=== PATIENT | female | born 1975 | race Caucasian/White ===

== ENCOUNTER → 2017-06-08 | Outpatient (CLI) | payer BC ==
--- NOTE | 2017-06-08 19:17 | Diagnostic Imaging Report ---
INDICATION: Digital mammogram bilateral screening. This study was compared to the prior exam of 06/10/15. At this time, there are no current complaints. The current study was also evaluated with a Computer Aided Detection (CAD) system. FINDINGS: The fibroglandular tissue in both breasts is heterogeneously dense. This does limit the sensitivity of this exam. Overall, there does not appear to have been any significant change when compared to the prior study. No primary or secondary sign of malignancy is noted. IMPRESSION: There is no radiographic evidence for malignancy. ACR BI-RADS Category 1: Negative. Result letter will be mailed to the patient. Note: At least 10% of breast cancer is not imaged by mammography. Dictated by: Dictated on workstation # [id number]
== END ==
LOC: RAD 07:48
PROVIDERS: ATTEND Nurse Practitioner Family
DX: Z12.31 Encounter for screening mammogram for malignant neoplasm of breast (principal)
CPT/HCPCS: 77067

== ENCOUNTER → 2018-07-25 | Outpatient (CLI) | payer BC ==
--- NOTE | 2018-07-25 12:00 | Diagnostic Imaging Report ---
INDICATION: Screening. TECHNIQUE: Bilateral CC and MLO 3D mammography was performed. The current study was also evaluated with a Computer Aided Detection (CAD) system. COMPARISON: 06/08/2017 and 06/10/2015. FINDINGS: The fibroglandular tissue is heterogeneously dense bilaterally. There is no dominant mass, spiculated lesion, or suspicious calcification identified. The skin, nipples, and axillae are unremarkable. IMPRESSION: Negative. ACR BI-RADS Category 1: Negative. Result letter will be mailed to the patient. Note: At least 10% of breast cancer is not imaged by mammography. Dictated by: Dictated on workstation # [id number]
== END ==
LOC: RAD 07:45
PROVIDERS: ATTEND Family Medicine
DX: Z12.31 Encounter for screening mammogram for malignant neoplasm of breast (principal)
CPT/HCPCS: 77067

== ENCOUNTER → 2019-08-29 | Outpatient (CLI) | payer BC ==
--- NOTE | 2019-08-29 19:41 | Diagnostic Imaging Report ---
Digital mammogram bilateral screening The current study was also evaluated with a Computer Aided Detection (CAD) system. The study was compared to the prior exams of 07/25/2018, 06/08/2017 and 06/10/2015. At this time, there are no current complaints. The fibroglandular tissue in both breasts is heterogeneously dense. This does limit the sensitivity of this exam. On the craniocaudad view of the left breast in the far lateral aspect of the breast roughly 10 cm from nipple there is a 1.4 cm area of increased density. There may be a corresponding abnormality on the MLO view just superior to the nipple line. This neodensity is of uncertain etiology but does represent a change from the prior study. I would recommend that a compression view of this area be obtained in the CC and ML projections for further study. Ultrasound should also be performed. The right breast is unchanged. IMPRESSION: Additional mammographic views and ultrasound of the left breast would be recommended for further study. ACR BI-RADS Category 0 : Needs additional imaging Result letter will be mailed to the patient. Note: At least 10% of breast cancer is not imaged by mammography. Dictated by: Dictated on workstation # [id number]
== END ==
LOC: RAD 07:21
PROVIDERS: ATTEND Family Medicine
DX: Z12.31 Encounter for screening mammogram for malignant neoplasm of breast (principal)
CPT/HCPCS: 77063; 77067

== ENCOUNTER → 2019-09-04 | Outpatient (CLI) | payer BC ==
--- NOTE | 2019-09-04 14:04 | Diagnostic Imaging Report ---
INDICATION: Left breast density. Study is performed for further evaluation. COMPARISON: Correlation is made with recent screening study from 08/29/2019. TECHNIQUE: Unilateral left 2D and 3D diagnostic mammography was performed. This includes spot compression CC and ML views as well as conventional 90 degree lateral view. The current study was evaluated with a Computer Aided Detection (CAD) system. FINDINGS: There is some mild residual density in the outer left breast at posterior depth approximately 9 to 10 cm from the nipple. This most likely represents fibroglandular tissue. No underlying mass is detected. No suspicious calcifications are seen. IMPRESSION: Mild residual density in the far posterior and outer left breast at approximately the 3 o'clock position. This may represent fibroglandular tissue. Further evaluation with ultrasound is recommended and will be performed today. ACR BI-RADS Category 0: Incomplete. (Needs additional imaging evaluation). Result letter will be mailed to the patient. Note: At least 10% of breast cancer is not imaged by mammography. Dictated by: Dictated on workstation # [id number]
--- NOTE | 2019-09-04 15:00 | Diagnostic Imaging Report ---
INDICATION: Left breast density. This study is performed for further evaluation. COMPARISON: Correlation is made with the diagnostic mammogram from earlier this same day and screening mammography from 08/29/2019. FINDINGS: Sonographic interrogation of the upper outer left breast at posterior depth was performed. No concerning sonographic finding is identified. There are several small cysts in the upper outer left breast at the 12, 2, and 3 o'clock locations. All cysts are approximately 3 to 5 mm in size. No solid mass is detected. IMPRESSION: Multiple cysts are seen in the upper outer left breast. No concerning sonographic findings are seen. The patient may return to routine annual screening mammography. ACR BI-RADS Category 2: Benign findings. Result letter will be mailed to the patient. Note: At least 10% of breast cancer is not imaged by mammography. Dictated by: Dictated on workstation # [id number]
== END ==
LOC: RAD 13:10
PROVIDERS: ATTEND Family Medicine
DX: N63.20 Unspecified lump in the left breast, unspecified quadrant (principal)
CPT/HCPCS: 76642

== ENCOUNTER → 2020-03-11 | Outpatient (CLI) | payer BC ==
--- NOTE | 2020-03-11 11:45 | Diagnostic Imaging Report ---
Lumbar spine at 1105 Indication: Left hip pain The lateral view shows the vertebral body heights and alignment to be generally within normal limits and similar to the prior exam of 10/18/2012. In the interval since the prior study mild narrowing of the L1-L2 and L2-L3 disc spaces has developed. The other intervertebral spaces are fairly well-maintained. There is no fracture or acute bony abnormality evident. There is no paraspinal mass. There is mild symmetrical sclerosis of the sacroiliac joints. Impression: 1. There is no evidence for an acute bony abnormality. 2. Mild degenerative changes involving the L1-L2 and L2-3 disc space have developed since the prior study. If there is clinical concern regarding spinal stenosis or nerve root encroachment, then MRI would be recommended for further study. Dictated by: Dictated on workstation # [id number]
--- NOTE | 2020-03-11 12:02 | Diagnostic Imaging Report ---
Left tibia at 11:03. Indication: Hip pain 2 views were obtained. There is no fracture, dislocation or acute bony abnormality evident. There is only mild narrowing of the hip joint space. However in the interval since the prior exam of 10/18/2012, several subchondral cysts have developed in the acetabulum. This does suggest degenerative disease and may be related to a labral injury. If there is clinical concern regarding injury to the labrum, then a followup MRI left hip exam with intra-articular contrast would be recommended for further evaluation. The soft tissues are unremarkable. Impression: 1. There is no evidence for an acute bony abnormality. 2. Sublabral cyst formation has developed within the acetabulum in the interval since the prior exam. These findings may be indirect evidence of a labral tear. Additional considerations as above. Dictated by: Dictated on workstation # [id number]
--- NOTE | 2020-03-11 12:06 | Diagnostic Imaging Report ---
EXAMINATION: Sacrococcyx at 1102 AP and lateral views were obtained. There is no fracture, dislocation or acute bony abnormality evident. There is mild symmetrical scoliosis of the sacroiliac joints. As noted in the left hip exam performed in conjunction with this study. There is subchondral cyst motion within the left acetabulum. There are similar but somewhat less severe changes involving the right acetabulum. The soft tissues are unremarkable. IMPRESSION: 1. There is no evidence for an acute bony abnormality. 2. 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 Dictated by: Dictated on workstation # [id number]
== END ==
LOC: RAD 10:33
PROVIDERS: ATTEND Family Medicine
DX: M47.816 Spondylosis without myelopathy or radiculopathy, lumbar region (principal); M16.12 Unilateral primary osteoarthritis, left hip
CPT/HCPCS: 72100; 72220; 73502